=== PATIENT | male | born 2000 | race Caucasian/White ===

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

== ENCOUNTER 2019-02-01 02:03 | Inpatient (IN) | payer BC ==
[2019-02-01] MEDS ORDERED: Albuterol/Ipratropium 3.0-0.5 MG/3 ML Neb Soln NEB ONE ×2 (02:08→02:17)
--- NOTE | 2019-02-01 02:09 | EDM.PDOC ---
ED HPI GENERAL MEDICAL PROBLEM - General Stated Complaint: CHEST TIGHTNESS, SORE THROAT, FEELING OF COLDNESS Time Seen by Provider: 02/01/19 02:08 Source of Information: Reports: Patient - History of Present Illness INITIAL COMMENTS - FREE TEXT/NARRATIVE: HISTORY AND PHYSICAL: History of present illness: [Patient with asthma presents with shortness of breath chest pain, no current fever chills or sweats however does complain of sore throat no headache dizziness or palpitation no bowel or urine symptoms His mother is placed on an antibiotic that she had left over from [place] I believe it is ampicillin, is not moving much air initially requiring back-to- back DuoNeb's and Solu-Medrol listed improved symptomology however between the antibiotic at home and failing the albuterol HFA is essentially failed conservative management ] Review of systems: As per history of present illness and below otherwise all systems reviewed and negative. Past medical history: As per history of present illness and as reviewed below otherwise noncontributory. Surgical history: As per history of present illness and as reviewed below otherwise noncontributory. Social history: No reported history of drug or alcohol abuse. Family history: As per history of present illness and as reviewed below otherwise noncontributory. Physical exam: HEENT: Atraumatic, normocephalic, pupils reactive, negative for conjunctival pallor or scleral icterus, mucous membranes moist, throat clear, neck supple, nontender, trachea midline. Lungs: Clear to auscultation, breath sounds equal bilaterally, chest nontender. Heart: S1S2, regular, negative for clicks, rubs, or JVD. Abdomen: Soft, nondistended, nontender. Negative for masses or hepatosplenomegaly. Negative for costovertebral tenderness. Pelvis: Stable nontender. Genitourinary: Deferred. Rectal: Deferred. Extremities: Atraumatic, negative for cords or calf pain. Neurovascular unremarkable. Neuro: Awake, alert, oriented. Cranial nerves II through XII unremarkable. Cerebellum unremarkable. Motor and sensory unremarkable throughout. Exam nonfocal. Diagnostics: [BC CMP UA d-dimer blood cultures 2 CPK pending at time of dictation chest x-ray CTA chest ] Therapeutics: [ normal saline DuoNeb 2 Solu-Medrol Levaquin ] Impression: [ pneumonia Asthma ] Failed conservative management Definitive disposition and diagnosis as appropriate pending reevaluation and review of above. Upper Chest Pain Score (Numeric/FACES): 5 - Related Data Allergies Allergy/AdvReac Type Severity Reaction Status Date / Time No Known Allergies Allergy Verified 02/01/19 02:20 Home Meds: Home Meds Albuterol [Ventolin HFA] 2 puff INH Q4H PRN 02/01/19 [History] Past Medical History - Past Health History Medical/Surgical History: Denies Medical/Surgical History Gastrointestinal History: Reports: Other (See Below) (cholecystitis) Other Gastrointestinal History: fatty liver Endocrine/Metabolic History: Reports: Obesity/BMI 30+ - Past Surgical History Head Surgeries/Procedures: Reports: None Social & Family History - Family History Family Medical History: Unobtainable - Caffeine Use Caffeine Use: Reports: None ED ROS GENERAL - Review of Systems Review Of Systems: See Below ED EXAM, GENERAL - Physical Exam Exam: See Below Course - Vital Signs Last Recorded V/S: Last Vital Signs Temp 97.9 F 02/01/19 02:16 Pulse 109 H 02/01/19 05:07 Resp 22 H 02/01/19 04:35 BP 114/73 02/01/19 05:07 Pulse Ox 92 L 02/01/19 05:07 - Orders/Labs/Meds Orders: Active Orders 24 hr Category Date Time Status EKG 12 Lead [EKG Documentation Completion] [RC] STAT Care 02/01/19 02:18 Active RT Aerosol Therapy [RC] ASDIRECTED Care 02/01/19 02:08 Active RT Aerosol Therapy [RC] ASDIRECTED Care 02/01/19 02:17 Active CPK [CREATINE KINASE,CK] [CHEM] Stat Lab 02/01/19 05:32 Ordered CULTURE STREP A CONFIRMATION [RM] Stat Lab 02/01/19 02:18 Ordered STREP SCRN A RAPID W CULT CONF [RM] Stat Lab 02/01/19 02:18 Ordered Sodium Chloride 0.9% [Normal Saline] 1,000 ml Med 02/01/19 02:30 Active IV STAT Medication Orders Sodium Chloride (Normal Saline) 1,000 mls @ 125 mls/hr IV STAT [facility] Last Admin: 02/01/19 02:15 Dose: 125 mls/hr Labs: Laboratory Tests 02/01/19 02/01/19 02/01/19 Range/Units 02:15 02:38 02:45 WBC 9.39 (4.0-11.0) K/uL RBC 4.67 (4.50-5.90) M/uL Hgb 12.9 L (13.0-17.0) g/dL Hct 38.4 (38.0-50.0) % MCV 82.2 (80.0-98.0) fL MCH 27.6 (27.0-32.0) pg MCHC 33.6 (31.0-37.0) g/dL RDW Std Deviation 41.1 (28.0-62.0) fl RDW Coeff of Afsaneh 14 (11.0-15.0) % Plt Count 281 (150-400) K/uL MPV 9.60 (7.40-12.00) fL Neut % (Auto) 72.6 (48.0-80.0) % Lymph % (Auto) 18.4 (16.0-40.0) % [place] % (Auto) 8.4 (0.0-15.0) % Eos % (Auto) 0.4 (0.0-7.0) % Baso % (Auto) 0.2 (0.0-1.5) % Neut # (Auto) 6.8 H (1.4-5.7) K/uL Lymph # (Auto) 1.7 (0.6-2.4) K/uL [place] # (Auto) 0.8 (0.0-0.8) K/uL Eos # (Auto) 0.0 (0.0-0.7) K/uL Baso # (Auto) 0.0 (0.0-0.1) K/uL Nucleated RBC % 0.0 /100WBC Nucleated RBCs # 0 K/uL INR D-Dimer, Quantitative 2.35 H (0.0-0.50) mg/L FEU Sodium (136-148) mmol/L Potassium (3.5-5.1) mmol/L Chloride (98-107) mmol/L Carbon Dioxide (21.0-32.0) mmol/L BUN (7.0-18.0) mg/dL Creatinine (0.8-1.3) mg/dL Est Cr Clr Drug Dosing mL/min Estimated GFR (MDRD) ml/min Glucose (74-106) mg/dL Calcium (8.5-10.1) mg/dL Total Bilirubin (0.2-1.0) mg/dL AST (15-37) IU/L ALT (14-63) IU/L Alkaline Phosphatase (46-116) U/L Troponin I (0.000-0.056) ng/mL Total Protein (6.4-8.2) g/dL Albumin (3.4-5.0) g/dL Globulin (2.6-4.0) g/dL Albumin/Globulin Ratio (0.9-1.6) Urine Color YELLOW Urine Appearance SLT CLOUDY Urine pH 6.0 (5.0-8.0) Ur Specific [place] 1.020 (1.001-1.035) Urine Protein 30 H (NEGATIVE) mg/dL Urine Glucose (UA) NEGATIVE (NEGATIVE) mg/dL Urine Ketones NEGATIVE (NEGATIVE) mg/dL Urine Occult Blood MODERATE H (NEGATIVE) Urine Nitrite NEGATIVE (NEGATIVE) Urine Bilirubin NEGATIVE (NEGATIVE) Urine Urobilinogen 0.2 (<2.0) EU/dL Ur Leukocyte Esterase NEGATIVE (NEGATIVE) Urine RBC 0-2 (0-2/HPF) Urine WBC 0-2 (0-5/HPF) Ur Epithelial Cells RARE (NONE-FEW) Urine Bacteria RARE (NEGATIVE) 02/01/19 02/01/19 Range/Units 02:45 02:45 WBC (4.0-11.0) K/uL RBC (4.50-5.90) M/uL Hgb (13.0-17.0) g/dL Hct (38.0-50.0) % MCV (80.0-98.0) fL MCH (27.0-32.0) pg MCHC (31.0-37.0) g/dL RDW Std Deviation (28.0-62.0) fl RDW Coeff of Afsaneh (11.0-15.0) % Plt Count (150-400) K/uL MPV (7.40-12.00) fL Neut % (Auto) (48.0-80.0) % Lymph % (Auto) (16.0-40.0) % [place] % (Auto) (0.0-15.0) % Eos % (Auto) (0.0-7.0) % Baso % (Auto) (0.0-1.5) % Neut # (Auto) (1.4-5.7) K/uL Lymph # (Auto) (0.6-2.4) K/uL [place] # (Auto) (0.0-0.8) K/uL Eos # (Auto) (0.0-0.7) K/uL Baso # (Auto) (0.0-0.1) K/uL Nucleated RBC % /100WBC Nucleated RBCs # K/uL INR 0.96 D-Dimer, Quantitative (0.0-0.50) mg/L FEU Sodium 136 (136-148) mmol/L Potassium 3.6 (3.5-5.1) mmol/L Chloride 98 (98-107) mmol/L Carbon Dioxide 24.9 (21.0-32.0) mmol/L BUN 8 (7.0-18.0) mg/dL Creatinine 0.9 (0.8-1.3) mg/dL Est Cr Clr Drug Dosing 122.41 mL/min Estimated GFR (MDRD) > 60.0 ml/min Glucose 139 H (74-106) mg/dL Calcium 8.3 L (8.5-10.1) mg/dL Total Bilirubin 0.4 (0.2-1.0) mg/dL AST 54 H (15-37) IU/L ALT 75 H (14-63) IU/L Alkaline Phosphatase 63 (46-116) U/L Troponin I < 0.050 (0.000-0.056) ng/mL Total Protein 7.6 (6.4-8.2) g/dL Albumin 3.2 L (3.4-5.0) g/dL Globulin 4.4 H (2.6-4.0) g/dL Albumin/Globulin Ratio 0.7 L (0.9-1.6) Urine Color Urine Appearance Urine pH (5.0-8.0) Ur Specific [place] (1.001-1.035) Urine Protein (NEGATIVE) mg/dL Urine Glucose (UA) (NEGATIVE) mg/dL Urine Ketones (NEGATIVE) mg/dL Urine Occult Blood (NEGATIVE) Urine Nitrite (NEGATIVE) Urine Bilirubin (NEGATIVE) Urine Urobilinogen (<2.0) EU/dL Ur Leukocyte Esterase (NEGATIVE) Urine RBC (0-2/HPF) Urine WBC (0-5/HPF) Ur Epithelial Cells (NONE-FEW) Urine Bacteria (NEGATIVE) Meds: Medications Generic Name Dose Route Start Last Admin Trade Name Gabrielle PRN Reason Stop Dose Admin Sodium Chloride 1,000 mls @ 125 mls/hr 02/01/19 02:30 02/01/19 02:15 Normal Saline IV 125 mls/hr STAT [facility] Administration Discontinued Medications Generic Name Dose Route Start Last Admin Trade Name Gabrielle PRN Reason Stop Dose Admin Albuterol/Ipratropium 3 ml 02/01/19 02:08 02/01/19 02:28 Duoneb 3.0-0.5 Mg/3 Ml NEB 02/01/19 02:09 3 ml ONETIME ONE Administration Albuterol/Ipratropium 3 ml 02/01/19 02:17 02/01/19 03:36 Duoneb 3.0-0.5 Mg/3 Ml NEB 02/01/19 02:18 3 ml ONETIME ONE Administration Iopamidol 100 ml 02/01/19 04:16 02/01/19 04:17 Isovue Multipack-370 (76%) IVPUSH 02/01/19 04:17 100 ml ONETIME STA Administration Methylprednisolone Sodium Succinate 125 mg 02/01/19 02:17 02/01/19 02:28 Solu-Medrol IVPUSH 02/01/19 02:18 125 mg ONETIME ONE Administration Departure - Departure Time of Disposition: 05:44 Disposition: Refer to Observation Condition: Poor Clinical Impression: Pneumonia, Asthma - Discharge Information - My Orders Last 24 Hours: My Active Orders 02/01/19 02:08 RT Aerosol Therapy [RC] ASDIRECTED 02/01/19 02:17 RT Aerosol Therapy [RC] ASDIRECTED 02/01/19 02:18 EKG 12 Lead [EKG Documentation Completion] [RC] STAT CULTURE STREP A CONFIRMATION [RM] Stat STREP SCRN A RAPID W CULT CONF [RM] Stat 02/01/19 02:30 Sodium Chloride 0.9% [Normal Saline] 1,000 ml IV STAT 02/01/19 05:32 CPK [CREATINE KINASE,CK] [CHEM] Stat - Assessment/Plan Last 24 Hours: My Active Orders 02/01/19 02:08 RT Aerosol Therapy [RC] ASDIRECTED 02/01/19 02:17 RT Aerosol Therapy [RC] ASDIRECTED 02/01/19 02:18 EKG 12 Lead [EKG Documentation Completion] [RC] STAT CULTURE STREP A CONFIRMATION [] Stat STREP SCRN A RAPID W CULT CONF [] Stat 02/01/19 02:30 Sodium Chloride 0.9% [Normal Saline] 1,000 ml IV STAT 02/01/19 05:32 CPK [CREATINE KINASE,CK] [CHEM] Stat
[2019-02-01] MEDS: Sodium Chloride 0.9% 1,000 ML IV SCH ×3 (02:15→19:38)
[2019-02-01] MEDS ORDERED: methylPREDNISolone Sodium Succinate 125 MG/2 ML SDV IVPUSH ONE (02:17)
[2019-02-01 03:12] LABS: BLOOD UREA NITROGEN,BUN 8 mg/dL (7.0-18.0); CARBON DIOXIDE,CO2 24.9 mmol/L (21.0-32.0); CHLORIDE,CL 98 mmol/L (98-107); GLUCOSE RANDOM 139 mg/dL (74-106); POTASSIUM,K 3.6 mmol/L (3.5-5.1); SODIUM,NA 136 mmol/L (136-148)
--- NOTE | 2019-02-01 03:27 | CR ---
INDICATION: Pain and shortness of breath TECHNIQUE: Chest 1 view COMPARISON: None FINDINGS: Cardiovascular and mediastinum: Heart size and vasculature are normal in caliber and appearance. Lungs and pleural spaces: No pleural effusion or pneumothorax. Patchy bilateral airspace opacities, greater on the right. Bones and soft tissues: No significant findings. IMPRESSION: Patchy bilateral airspace opacities suggestive of pneumonia. Dictated by Judd Parrish MD @ Feb 01 2019 3:24AM Signed by Dr. Judd Parrish @ Feb 01 2019 3:24AM
[2019-02-01] MEDS ORDERED: Iopamidol 755 MG/ML 500 ML Multipack Bottle IVPUSH STA (04:16)
--- NOTE | 2019-02-01 05:25 | CT ---
INDICATION: Shortness of breath and elevated D-dimer. TECHNIQUE: CT chest PE was acquired with 80 cc Isovue 370 intravenous contrast. COMPARISON: None. FINDINGS: Heart and vasculature: Contrast opacification of the pulmonary arterial tree is adequate. No sign of pulmonary embolism. No pericardial effusion. Thoracic aorta normal in caliber. Lungs and pleural: No pleural effusion or pneumothorax. Centrilobular nodularity within both lungs with intervening dense areas of consolidation Lymph nodes/mediastinum: Subcentimeter prevascular lymph nodes with subcarinal lymph nodes measuring up to 16 millimeters in short axis. Right hilar lymph nodes measure up to 13 millimeters. Chest wall: No masses. Upper abdomen: Fatty infiltration of the liver. Status post cholecystectomy. Bones: Unremarkable for age. IMPRESSION: 1. No evidence of pulmonary embolus. 2. Bilateral areas of centrilobular nodularity in prominent consolidation. Appearance is suggestive of a multifocal bronchopneumonia. Differential diagnosis would include a pneumonitis. Please note that all CT scans at this facility use dose modulation, iterative reconstruction, and/or weight-based dosing when appropriate to reduce radiation dose to as low as reasonably achievable. Dictated by Judd Parrish MD @ Feb 01 2019 5:07AM Signed by Dr. Judd Parrish @ Feb 01 2019 5:24AM
[2019-02-01] MEDS ORDERED: Levofloxacin/Dextrose 5%-Water 750 MG in Premix Bag 1 BAG IV ONE (05:40)
--- NOTE | 2019-02-01 07:14 | PCM.HP.2 ---
H&P History of Present Illness - General Date of Service: 02/01/19 Admit Problem/Dx: Admission Diagnosis/Problem Admission Diagnosis/Problem Pneumonia, multilobular, community-acquired, hypoxia Source of Information: Patient, Family History Limitations: Reports: No Limitations - History of Present Illness Initial Comments - Free Text/Narative: The patient is a 18-year-old gentleman who presented to the emergency department this morning secondary to chest tightness, sore throat and feeling of coldness. Patient reports that he has not been feeling well for the past 3-4 days. He has had a cough that has been productive of sputum. The patient had been taking leftover ampicillin but this is not improved his symptoms. He does have a history of asthma and he has been having increasing wheezing and shortness of breath. The patient has said that he has had some fever and chills although he has not been able to measure his temperature. The patient has had no specific aggravating or relieving factors. The patient has been in his usual state of health at the present time. The patient was last admitted to hospitalization 2 years ago for cholecystitis. Onset of Symptoms: Reports: Gradual Duration of Symptoms: Reports: Day(s):, Getting Worse Location: Reports: Chest Quality: Reports: Ache, Stabbing Severity: Moderate Improves with: Reports: Rest Worsens with: Reports: Breathing Associated Symptoms: Reports: cough w sputum, Shortness of Breath Upper Chest Pain Score (Numeric/FACES): 5 - Related Data Allergies/Adverse Reactions: Allergies Allergy/AdvReac Type Severity Reaction Status Date / Time No Known Allergies Allergy Verified 02/01/19 08:59 Home Medications: Home Meds Albuterol [Ventolin HFA] 2 puff INH Q4H PRN 02/01/19 [History] Past Medical History - Past Health History Medical/Surgical History: Denies Medical/Surgical History HEENT History: Reports: Impaired Vision Other HEENT History: wears glasses Cardiovascular History: Reports: None Respiratory History: Reports: Asthma, Bronchitis, Recurrent Gastrointestinal History: Reports: Other (See Below) (cholecystitis) Other Gastrointestinal History: fatty liver Genitourinary History: Reports: None Musculoskeletal History: Reports: None Neurological History: Reports: None Psychiatric History: Reports: None Endocrine/Metabolic History: Reports: Obesity/BMI 30+ Hematologic History: Reports: None Immunologic History: Reports: None Oncologic (Cancer) History: Reports: None Dermatologic History: Reports: None - Infectious Disease History Infectious Disease History: Reports: None - Past Surgical History Head Surgeries/Procedures: Reports: None Social & Family History - Family History Family Medical History: Unobtainable - Tobacco Use Smoking Status *Q: Never Smoker Second Hand Smoke Exposure: No - Caffeine Use Caffeine Use: Reports: None - Alcohol Use Alcohol Use History: No - Recreational Drug Use Recreational Drug Use: No H&P Review of Systems - Review of Systems: Review Of Systems: See Below General: Reports: Fever, Chills, Weakness HEENT: Reports: No Symptoms Pulmonary: Reports: Shortness of Breath, Wheezing, Cough, Sputum Cardiovascular: Reports: Other (Chest tightness with asthma history) Gastrointestinal: Reports: No Symptoms Genitourinary: Reports: No Symptoms Musculoskeletal: Reports: No Symptoms Skin: Reports: No Symptoms Psychiatric: Reports: No Symptoms Neurological: Reports: No Symptoms Hematologic/Lymphatic: Reports: No Symptoms Immunologic: Reports: No Symptoms Exam - Exam Exam: See Below - Vital Signs Vital Signs: Last Vital Signs Temp 36.7 C 02/01/19 06:25 Pulse 95 02/01/19 06:25 Resp 20 02/01/19 06:25 BP 120/65 02/01/19 06:25 Pulse Ox 94 L 02/01/19 06:25 Weight: 133.81 kg - Exam Quality Assessment: No: Supplemental Oxygen General: Alert, Oriented, Cooperative HEENT: Conjunctiva Clear, EACs Clear, EOMI, Nares Patent, Pupils Equal, PERRLA. No: Mucosa Moist & [place] (Dry) Neck: Supple, Trachea Midline Lungs: Decreased Breath Sounds, Crackles, Wheezing Cardiovascular: Regular Rate, Regular Rhythm GI/Abdominal Exam: Normal Bowel Sounds, Soft, Non-Tender, No Distention. No: Guarding, Rigid, Rebound Back Exam: Normal Inspection, Full Range of Motion Extremities: Normal Inspection, Normal Range of Motion, No Pedal Edema Skin: Warm, Dry, Intact Neurological: Cranial Nerves Intact, Normal Gait Neuro Extensive - Mental Status: Alert, Oriented x3, Memory Intact Psychiatric: Alert, Normal Affect, Normal Mood - Patient Data Lab Results Last 24 hrs: Laboratory Results - last 24 hr 02/01/19 02/01/19 02/01/19 Range/Units 02:15 02:38 02:45 WBC 9.39 (4.0-11.0) K/uL RBC 4.67 (4.50-5.90) M/uL Hgb 12.9 L (13.0-17.0) g/dL Hct 38.4 (38.0-50.0) % MCV 82.2 (80.0-98.0) fL MCH 27.6 (27.0-32.0) pg MCHC 33.6 (31.0-37.0) g/dL RDW Std Deviation 41.1 (28.0-62.0) fl RDW Coeff of Afsaneh 14 (11.0-15.0) % Plt Count 281 (150-400) K/uL MPV 9.60 (7.40-12.00) fL Neut % (Auto) 72.6 (48.0-80.0) % Lymph % (Auto) 18.4 (16.0-40.0) % [place] % (Auto) 8.4 (0.0-15.0) % Eos % (Auto) 0.4 (0.0-7.0) % Baso % (Auto) 0.2 (0.0-1.5) % Neut # (Auto) 6.8 H (1.4-5.7) K/uL Lymph # (Auto) 1.7 (0.6-2.4) K/uL [place] # (Auto) 0.8 (0.0-0.8) K/uL Eos # (Auto) 0.0 (0.0-0.7) K/uL Baso # (Auto) 0.0 (0.0-0.1) K/uL Nucleated RBC % 0.0 /100WBC Nucleated RBCs # 0 K/uL INR D-Dimer, Quantitative 2.35 H (0.0-0.50) mg/L FEU Sodium (136-148) mmol/L Potassium (3.5-5.1) mmol/L Chloride (98-107) mmol/L Carbon Dioxide (21.0-32.0) mmol/L BUN (7.0-18.0) mg/dL Creatinine (0.8-1.3) mg/dL Est Cr Clr Drug Dosing mL/min Estimated GFR (MDRD) ml/min Glucose (74-106) mg/dL Calcium (8.5-10.1) mg/dL Total Bilirubin (0.2-1.0) mg/dL AST (15-37) IU/L ALT (14-63) IU/L Alkaline Phosphatase (46-116) U/L Creatine Kinase (26-308) U/L Troponin I (0.000-0.056) ng/mL Total Protein (6.4-8.2) g/dL Albumin (3.4-5.0) g/dL Globulin (2.6-4.0) g/dL Albumin/Globulin Ratio (0.9-1.6) Urine Color YELLOW Urine Appearance SLT CLOUDY Urine pH 6.0 (5.0-8.0) Ur Specific [place] 1.020 (1.001-1.035) Urine Protein 30 H (NEGATIVE) mg/dL Urine Glucose (UA) NEGATIVE (NEGATIVE) mg/dL Urine Ketones NEGATIVE (NEGATIVE) mg/dL Urine Occult Blood MODERATE H (NEGATIVE) Urine Nitrite NEGATIVE (NEGATIVE) Urine Bilirubin NEGATIVE (NEGATIVE) Urine Urobilinogen 0.2 (<2.0) EU/dL Ur Leukocyte Esterase NEGATIVE (NEGATIVE) Urine RBC 0-2 (0-2/HPF) Urine WBC 0-2 (0-5/HPF) Ur Epithelial Cells RARE (NONE-FEW) Urine Bacteria RARE (NEGATIVE) 02/01/19 02/01/19 02/01/19 Range/Units 02:45 02:45 02:45 WBC (4.0-11.0) K/uL RBC (4.50-5.90) M/uL Hgb (13.0-17.0) g/dL Hct (38.0-50.0) % MCV (80.0-98.0) fL MCH (27.0-32.0) pg MCHC (31.0-37.0) g/dL RDW Std Deviation (28.0-62.0) fl RDW Coeff of Afsaneh (11.0-15.0) % Plt Count (150-400) K/uL MPV (7.40-12.00) fL Neut % (Auto) (48.0-80.0) % Lymph % (Auto) (16.0-40.0) % [place] % (Auto) (0.0-15.0) % Eos % (Auto) (0.0-7.0) % Baso % (Auto) (0.0-1.5) % Neut # (Auto) (1.4-5.7) K/uL Lymph # (Auto) (0.6-2.4) K/uL [place] # (Auto) (0.0-0.8) K/uL Eos # (Auto) (0.0-0.7) K/uL Baso # (Auto) (0.0-0.1) K/uL Nucleated RBC % /100WBC Nucleated RBCs # K/uL INR 0.96 D-Dimer, Quantitative (0.0-0.50) mg/L FEU Sodium 136 (136-148) mmol/L Potassium 3.6 (3.5-5.1) mmol/L Chloride 98 (98-107) mmol/L Carbon Dioxide 24.9 (21.0-32.0) mmol/L BUN 8 (7.0-18.0) mg/dL Creatinine 0.9 (0.8-1.3) mg/dL Est Cr Clr Drug Dosing 122.41 mL/min Estimated GFR (MDRD) > 60.0 ml/min Glucose 139 H (74-106) mg/dL Calcium 8.3 L (8.5-10.1) mg/dL Total Bilirubin 0.4 (0.2-1.0) mg/dL AST 54 H (15-37) IU/L ALT 75 H (14-63) IU/L Alkaline Phosphatase 63 (46-116) U/L Creatine Kinase 236 (26-308) U/L Troponin I < 0.050 (0.000-0.056) ng/mL Total Protein 7.6 (6.4-8.2) g/dL Albumin 3.2 L (3.4-5.0) g/dL Globulin 4.4 H (2.6-4.0) g/dL Albumin/Globulin Ratio 0.7 L (0.9-1.6) Urine Color Urine Appearance Urine pH (5.0-8.0) Ur Specific [place] (1.001-1.035) Urine Protein (NEGATIVE) mg/dL Urine Glucose (UA) (NEGATIVE) mg/dL Urine Ketones (NEGATIVE) mg/dL Urine Occult Blood (NEGATIVE) Urine Nitrite (NEGATIVE) Urine Bilirubin (NEGATIVE) Urine Urobilinogen (<2.0) EU/dL Ur Leukocyte Esterase (NEGATIVE) Urine RBC (0-2/HPF) Urine WBC (0-5/HPF) Ur Epithelial Cells (NONE-FEW) Urine Bacteria (NEGATIVE) Result Diagrams: 02/01/19 02:15 02/01/19 02:45 Greg Results Last 24 hrs: Microbiology 02/01/19 02:18 Group A Streptococcus Rapid Screen - Final Throat NEGATIVE STREP A SCREEN REFERENCE RANGE: NEGATIVE - Problem List (1) Pneumonia SNOMED Code(s): 058037992 ICD Code: J18.9 - PNEUMONIA, UNSPECIFIED ORGANISM Status: Acute Priority : High Current Visit: Yes Problem Details: Multilobular, community-acquired Qualifiers: Pneumonia type: due to unspecified organism Laterality: bilateral Lung location: unspecified part of lung Qualified Code(s): J18.9 - Pneumonia, unspecified organism (2) Leukocytosis SNOMED Code(s): 358200556, 363119380 ICD Code: D72.829 - ELEVATED WHITE BLOOD CELL COUNT, UNSPECIFIED Status: Acute Priority: High Current Visit: Yes Qualifiers: Leukocytosis type: bandemia Qualified Code(s): D72.825 - Bandemia (3) Obesity, Class III, BMI 40-49.9 (morbid obesity) SNOMED Code(s): 802972484, 344025595, 75455060816196 ICD Code: E66.01 - MORBID (SEVERE) OBESITY DUE TO EXCESS CALORIES Status: Chronic Priority: Medium Current Visit: Yes (4) Asthma SNOMED Code(s): 788197602 ICD Code: J45.909 - UNSPECIFIED ASTHMA, UNCOMPLICATED Status: Chronic Priority: High Current Visit: Yes Qualifiers: Asthma severity: mild Asthma persistence: intermittent Asthma complication type: uncomplicated Qualified Code(s): J45.20 - Mild intermittent asthma, uncomplicated Problem List Initiated/Reviewed/Updated: Yes Orders Last 24hrs: Active Orders 24 hr Category Date Time Status Admission Status [Patient Status] [ADT] Stat ADT 02/01/19 05:44 Active EKG 12 Lead [EKG Documentation Completion] [RC] STAT Care 02/01/19 02:18 Active RT Aerosol Therapy [RC] ASDIRECTED Care 02/01/19 02:08 Active RT Aerosol Therapy [RC] ASDIRECTED Care 02/01/19 02:17 Active CULTURE BLOOD [BC] Stat Lab 02/01/19 06:05 Received CULTURE BLOOD [] Stat Lab 02/01/19 06:16 Received CULTURE STREP A CONFIRMATION [] Stat Lab 02/01/19 02:18 Ordered STREP SCRN A RAPID W CULT CONF [] Stat Lab 02/01/19 02:18 Ordered Sodium Chloride 0.9% [Normal Saline] 1,000 ml Med 02/01/19 02:30 Active IV STAT Blood Culture x2 Reflex Set [OM.PC] Stat Oth 02/01/19 05:39 Ordered Medication Orders Sodium Chloride (Normal Saline) 1,000 mls @ 125 mls/hr IV STAT SAMARA Last Admin: 02/01/19 02:15 Dose: 125 mls/hr Assessment/Plan Comment:: The patient is a 18-year-old gentleman who has a respiratory history of asthma and has been admitted secondary to multilobular pneumonia. I specifically asked the patient if he had been using electronic cigarettes and he has denied this. The patient will be admitted for now to observation and placed the patient on Levaquin 500 mg IV daily. I've also ordered respiratory therapy with rica nebs to help with his wheezing. The patient will also be kept on regular diet as tolerated. I've also ordered for the patient to have DVT prophylaxis with the use of 40 mg subcutaneous Lovenox daily. Repeat laboratory studies have been ordered. He's been encouraged to ambulate. The patient was also noted to have an elevation and a d-dimer and a CT scan excluded pulmonary emboli. The patient will also be kept on IV normal saline at 125 milliliters per hour. I do not believe at this time that the patient meets the criteria for sepsis as his lactate is been normal. The patient should be appropriate for discharge in 1-2 days. - Mortality Measure Prognosis:: Good
[2019-02-01] MEDS ORDERED: Docusate Sodium 100 MG Cap PO PRN (07:27)
[2019-02-01] MEDS ORDERED: Acetaminophen 325 MG Tab PO PRN (07:27)
[2019-02-01] MEDS ORDERED: Ondansetron 4 MG Tab.DIS PO PRN (07:27)
[2019-02-01] MEDS ORDERED: oxyCODONE 5 MG Tab PO PRN (07:27)
[2019-02-01] MEDS: Enoxaparin 40 MG/0.4 ML Syringe SUBCUT SCH (08:49)
[2019-02-01] MEDS ORDERED: Levofloxacin/Dextrose 5%-Water 500 MG in Premix Bag 1 BAG IV SCH (10:00)
[2019-02-01] MEDS: Albuterol/Ipratropium 3.0-0.5 MG/3 ML Neb Soln NEB PRN (19:28)
[2019-02-02] MEDS: Albuterol/Ipratropium 3.0-0.5 MG/3 ML Neb Soln NEB PRN ×3 (01:57→19:30)
[2019-02-02] MEDS: Sodium Chloride 0.9% 1,000 ML IV SCH (03:07)
[2019-02-02 06:46] LABS: BLOOD UREA NITROGEN,BUN 10 mg/dL (7.0-18.0); CARBON DIOXIDE,CO2 24.7 mmol/L (21.0-32.0); CHLORIDE,CL 106 mmol/L (98-107); GLUCOSE RANDOM 145 mg/dL (74-106); POTASSIUM,K 3.9 mmol/L (3.5-5.1); SODIUM,NA 141 mmol/L (136-148)
--- NOTE | 2019-02-02 06:58 | CR ---
INDICATION: Pneumonia. COMPARISON: 02/01/2019. TECHNIQUE: Single view of the chest. FINDINGS: Patchy bilateral lung opacities most pronounced in the right lung base are more pronounced/dense compared to prior chest x-ray. No pleural effusion or pneumothorax. Cardiomediastinal silhouette is normal. IMPRESSION: Redemonstration of bilateral lung opacities most pronounced in the right lower lung, more pronounced/dense compared to prior chest x-ray. Dictated by Shiv Adame MD @ Feb 02 2019 6:54AM Signed by Dr. Shiv Adame @ Feb 02 2019 6:56AM
[2019-02-02] MEDS: Enoxaparin 40 MG/0.4 ML Syringe SUBCUT SCH (08:23)
[2019-02-02] MEDS: Levofloxacin/Dextrose 5%-Water 750 MG in Premix Bag 1 BAG IV SCH (08:23)
--- NOTE | 2019-02-02 08:48 | PCM.PN ---
- General Info Date of Service: 02/02/19 Admission Dx/Problem (Free Text): Admission Diagnosis/Problem Admission Diagnosis/Problem Pneumonia, multilobular, community-acquired, hypoxia Subjective Update: patient seen and examined at bedside. No acute distress, denied sob, palpitations. Breathing has improved, c/o mild abdominal discomfort Functional Status: Reports: Pain Controlled, Tolerating Diet, Urinating, Incentive Spirometry - Review of Systems General: Reports: Fatigue, Malaise HEENT: Reports: No Symptoms Pulmonary: Reports: Shortness of Breath, Cough, Sputum Cardiovascular: Reports: Dyspnea on Exertion Gastrointestinal: Reports: No Symptoms Genitourinary: Reports: No Symptoms Neurological: Reports: No Symptoms Psychiatric: Reports: No Symptoms - Patient Data Vitals - Most Recent: Last Vital Signs Temp 36.8 C 02/02/19 07:40 Pulse 89 02/02/19 07:40 Resp 18 02/02/19 07:40 BP 125/64 02/02/19 07:40 Pulse Ox 94 L 02/02/19 07:40 Weight - Most Recent: 295 lb I&O - Last 24 Hours: Intake & Output 02/01/19 02/02/19 02/02/19 22:59 06:59 14:59 Intake Total 2202 2915 240 Output Total 950 Balance 1252 2915 240 Lab Results Last 24 Hours: Laboratory Results - last 24 hr 02/02/19 02/02/19 Range/Units 06:10 06:10 WBC 12.69 H (4.0-11.0) K/uL RBC 4.17 L (4.50-5.90) M/uL Hgb 11.4 L (13.0-17.0) g/dL Hct 34.5 L (38.0-50.0) % MCV 82.7 (80.0-98.0) fL MCH 27.3 (27.0-32.0) pg MCHC 33.0 (31.0-37.0) g/dL RDW Std Deviation 42.1 (28.0-62.0) fl RDW Coeff of Afsaneh 14 (11.0-15.0) % Plt Count 316 (150-400) K/uL MPV 9.20 (7.40-12.00) fL Add Manual Diff YES Neutrophils % (Manual) 74 (48.0-80.0) % Band Neutrophils % 2 % Lymphocytes % (Manual) 16 (16.0-40.0) % Monocytes % (Manual) 6 (0.0-15.0) % Metamyelocytes % 2 % Nucleated RBC % 0.0 /100WBC Absolute Seg Neuts 9.4 H (1.4-5.7) Band Neutrophils # 0.3 Lymphocytes # (Manual) 2.0 (0.6-2.4) Monocytes # (Manual) 0.8 (0.0-0.8) Absolute Metamyelocyte 0.3 Nucleated RBCs # 0 K/uL Sodium 141 (136-148) mmol/L Potassium 3.9 (3.5-5.1) mmol/L Chloride 106 (98-107) mmol/L Carbon Dioxide 24.7 (21.0-32.0) mmol/L BUN 10 (7.0-18.0) mg/dL Creatinine 0.7 L (0.8-1.3) mg/dL Est Cr Clr Drug Dosing 173.81 mL/min Estimated GFR (MDRD) > 60.0 ml/min Glucose 145 H (74-106) mg/dL Calcium 8.5 (8.5-10.1) mg/dL Total Bilirubin 0.2 (0.2-1.0) mg/dL AST 43 H (15-37) IU/L ALT 75 H (14-63) IU/L Alkaline Phosphatase 50 (46-116) U/L Total Protein 6.9 (6.4-8.2) g/dL Albumin 2.6 L (3.4-5.0) g/dL Globulin 4.3 H (2.6-4.0) g/dL Albumin/Globulin Ratio 0.6 L (0.9-1.6) Greg Results Last 24 Hours: Microbiology 02/01/19 06:16 Aerobic Blood Culture - Preliminary Blood - Venous - Lab Draw NO GROWTH AFTER 1 DAY Anaerobic Blood Culture - Preliminary NO GROWTH AFTER 1 DAY 02/01/19 06:05 Aerobic Blood Culture - Preliminary Blood - Venous NO GROWTH AFTER 1 DAY Anaerobic Blood Culture - Preliminary NO GROWTH AFTER 1 DAY 02/01/19 08:53 Influenza Type A Antigen Screen - Final Nasopharyngeal Swab NEGATIVE INFLUENZA A VIRUS AG REFERENCE RANGE: NEGATIVE Influenza Type B Antigen Screen - Final NEGATIVE INFLUENZA B VIRUS AG REFERENCE RANGE: NEGATIVE Med Orders - Current: Current Medications Acetaminophen (Tylenol) 650 mg PO Q4H PRN PRN Reason: Pain (Mild 1-3)/fever Albuterol/Ipratropium (Duoneb 3.0-0.5 Mg/3 Ml) 3 ml NEB Q4HRRT PRN PRN Reason: Shortness Of Breath/wheezing Last Admin: 02/02/19 01:57 Dose: 3 ml Docusate Sodium (Colace) 100 mg PO BID PRN PRN Reason: Constipation Enoxaparin Sodium (Lovenox) 40 mg SUBCUT Q24H SAMARA Last Admin: 02/02/19 08:23 Dose: 40 mg Sodium Chloride (Normal Saline) 1,000 mls @ 125 mls/hr IV STAT SAMARA Last Admin: 02/02/19 03:07 Dose: 125 mls/hr Levofloxacin/Dextrose 750 mg/ (Premix) 150 mls @ 100 mls/hr IV Q24H [facility] Last Admin: 02/02/19 08:23 Dose: 100 mls/hr Ondansetron HCl (Zofran Odt) 4 mg PO Q4H PRN PRN Reason: nausea, able to take PO Oxycodone HCl (Oxycodone) 5 mg PO Q4H PRN PRN Reason: Pain (moderate 4-6) Discontinued Medications Albuterol/Ipratropium (Duoneb 3.0-0.5 Mg/3 Ml) 3 ml NEB ONETIME ONE Stop: 02/01/19 02:09 Last Admin: 02/01/19 02:28 Dose: 3 ml Albuterol/Ipratropium (Duoneb 3.0-0.5 Mg/3 Ml) 3 ml NEB ONETIME ONE Stop: 02/01/19 02:18 Last Admin: 02/01/19 03:36 Dose: 3 ml Levofloxacin/Dextrose 750 mg/ (Premix) 150 mls @ 100 mls/hr IV ONETIME ONE Stop: 02/01/19 07:09 Last Admin: 02/01/19 05:56 Dose: 100 mls/hr Levofloxacin/Dextrose 500 mg/ (Premix) 100 mls @ 100 mls/hr IV Q24H [facility] Last Admin: 02/01/19 11:00 Dose: 100 mls/hr Iopamidol (Isovue Multipack-370 (76%)) 100 ml IVPUSH ONETIME STA Stop: 02/01/19 04:17 Last Admin: 02/01/19 04:17 Dose: 100 ml Methylprednisolone Sodium Succinate (Solu-Medrol) 125 mg IVPUSH ONETIME ONE Stop: 02/01/19 02:18 Last Admin: 02/01/19 02:28 Dose: 125 mg - Exam Quality Assessment: Supplemental Oxygen General: Alert, Oriented, Cooperative Neck: Supple, Trachea Midline Lungs: Normal Respiratory Effort, Decreased Breath Sounds Cardiovascular: Regular Rate, Regular Rhythm GI/Abdominal Exam: Normal Bowel Sounds Extremities: Normal Inspection, Normal Range of Motion Peripheral Pulses: 3+: Dorsalis Pedis (L), Dorsalis Pedis (R) - Problem List & Annotations (1) Pneumonia SNOMED Code(s): 365730595 Code(s): J18.9 - PNEUMONIA, UNSPECIFIED ORGANISM Status: Acute Priority: High Current Visit: Yes Qualifiers: Pneumonia type: due to unspecified organism Laterality: bilateral Lung location: unspecified part of lung Qualified Code(s): J18.9 - Pneumonia, unspecified organism Annotation/Comment:: Multilobular, community-acquired (2) Asthma SNOMED Code(s): 393607322 Code(s): J45.909 - UNSPECIFIED ASTHMA, UNCOMPLICATED Status: Chronic Priority: High Current Visit: Yes Qualifiers: Asthma severity: mild Asthma persistence: intermittent Asthma complication type: uncomplicated Qualified Code(s): J45.20 - Mild intermittent asthma, uncomplicated (3) Obesity, Class III, BMI 40-49.9 (morbid obesity) SNOMED Code(s): 702688027, 659856355, 39278379328019 Code(s): E66.01 - MORBID (SEVERE) OBESITY DUE TO EXCESS CALORIES Status: Chronic Priority: Medium Current Visit: Yes - Problem List Review Problem List Initiated/Reviewed/Updated: Yes - Plan Plan:: 1) Community acquired PNA: patient came in with cough, sob, chest tightness ACS was ruled out at admission patient was also noted to have an elevated d-dimer and a CT scan excluded pulmonary emboli and showed multifocal PNA Patient improving clinically, cont IV antibiotic f/u on sputum culture, prelim result noted Deescalate based on sensitivities cont DuoNebs as needed Start cough suppressant cont incentive spirometry cont to monitor vitals Will change to inpatient status as patient will not be discharged today as he still needs IV antibiotics and cultures are pending. cont DVT ppx Ambulate as tolerated 2) Asthma: childhood h/o asthma not in acute exacerbation, 3) Obesity: counseled about healthy life style and weight gain
[2019-02-02] MEDS ORDERED: Ibuprofen 400 MG Tab PO PRN (11:12)
[2019-02-02 11:53] LABS: HEMOGLOBIN A1C 6.1 % (4.5-6.2)
[2019-02-02] MEDS ORDERED: Simethicone 80 MG Tab.Chew PO ONE (16:57)
[2019-02-02] MEDS ORDERED: Sodium Chloride 0.9% 1,000 ML IV SCH (17:15)
[2019-02-03 06:24] LABS: BLOOD UREA NITROGEN,BUN 10 mg/dL (7.0-18.0); CARBON DIOXIDE,CO2 24.9 mmol/L (21.0-32.0); CHLORIDE,CL 105 mmol/L (98-107); GLUCOSE RANDOM 101 mg/dL (74-106); POTASSIUM,K 3.9 mmol/L (3.5-5.1); SODIUM,NA 140 mmol/L (136-148)
[2019-02-03] MEDS: Albuterol/Ipratropium 3.0-0.5 MG/3 ML Neb Soln NEB PRN (07:21)
[2019-02-03] MEDS: Levofloxacin/Dextrose 5%-Water 750 MG in Premix Bag 1 BAG IV SCH (08:17)
[2019-02-03] MEDS: Enoxaparin 40 MG/0.4 ML Syringe SUBCUT SCH (08:17)
[2019-02-04 06:37] LABS: BLOOD UREA NITROGEN,BUN 10 mg/dL (7.0-18.0); CARBON DIOXIDE,CO2 25.9 mmol/L (21.0-32.0); CHLORIDE,CL 104 mmol/L (98-107); GLUCOSE RANDOM 101 mg/dL (74-106); POTASSIUM,K 4.4 mmol/L (3.5-5.1); SODIUM,NA 140 mmol/L (136-148)
[2019-02-04 07:41] VITALS: BP 112/58; PULSE 100
--- NOTE | 2019-02-04 08:07 | PCM.PN ---
- General Info Date of Service: 02/04/19 Admission Dx/Problem (Free Text): Admission Diagnosis/Problem Admission Diagnosis/Problem Pneumonia, multilobular, community-acquired, hypoxia - Patient Data Vitals - Most Recent: Last Vital Signs Temp 97.5 F 02/04/19 07:41 Pulse 100 02/04/19 07:41 Resp 18 02/04/19 07:41 BP 112/58 L 02/04/19 07:41 Pulse Ox 93 L 02/04/19 07:41 Weight - Most Recent: 133.81 kg I&O - Last 24 Hours: Intake & Output 02/03/19 02/04/19 02/04/19 22:59 06:59 14:59 Intake Total 2009 1500 Output Total 150 600 Balance 1860 900 Lab Results Last 24 Hours: Laboratory Results - last 24 hr 02/04/19 02/04/19 Range/Units 06:03 06:03 WBC 15.05 H (4.0-11.0) K/uL RBC 4.70 (4.50-5.90) M/uL Hgb 12.8 L (13.0-17.0) g/dL Hct 38.8 (38.0-50.0) % MCV 82.6 (80.0-98.0) fL MCH 27.2 (27.0-32.0) pg MCHC 33.0 (31.0-37.0) g/dL RDW Std Deviation 42.0 (28.0-62.0) fl RDW Coeff of Afsaneh 14 (11.0-15.0) % Plt Count 454 H (150-400) K/uL MPV 8.80 (7.40-12.00) fL Add Manual Diff YES Neutrophils % (Manual) 59 (48.0-80.0) % Lymphocytes % (Manual) 30 (16.0-40.0) % Monocytes % (Manual) 9 (0.0-15.0) % Eosinophils % (Manual) 2 (0.0-7.0) % Nucleated RBC % 0.0 /100WBC Absolute Seg Neuts 8.9 H (1.4-5.7) Lymphocytes # (Manual) 4.5 H (0.6-2.4) Monocytes # (Manual) 1.4 H (0.0-0.8) Eosinophils # (Manual) 0.3 (0.0-0.7) Nucleated RBCs # 0 K/uL Sodium 140 (136-148) mmol/L Potassium 4.4 (3.5-5.1) mmol/L Chloride 104 (98-107) mmol/L Carbon Dioxide 25.9 (21.0-32.0) mmol/L BUN 10 (7.0-18.0) mg/dL Creatinine 0.9 (0.8-1.3) mg/dL Est Cr Clr Drug Dosing 135.19 mL/min Estimated GFR (MDRD) > 60.0 ml/min Glucose 101 (74-106) mg/dL Calcium 8.8 (8.5-10.1) mg/dL Phosphorus 4.6 (2.6-4.7) mg/dL Magnesium 2.3 (1.8-2.4) mg/dL Greg Results Last 24 Hours: Microbiology 02/01/19 06:16 Aerobic Blood Culture - Preliminary Blood - Venous - Lab Draw NO GROWTH AFTER 3 DAYS Anaerobic Blood Culture - Preliminary NO GROWTH AFTER 3 DAYS 02/01/19 06:05 Aerobic Blood Culture - Preliminary Blood - Venous NO GROWTH AFTER 3 DAYS Anaerobic Blood Culture - Preliminary NO GROWTH AFTER 3 DAYS 02/02/19 10:15 Streptococcus pneumoniae Antigen (M - Final Urine Med Orders - Current: Current Medications Albuterol/Ipratropium (Duoneb 3.0-0.5 Mg/3 Ml) 3 ml NEB Q4HRRT PRN PRN Reason: Shortness Of Breath/wheezing Last Admin: 02/03/19 07:21 Dose: 3 ml Docusate Sodium (Colace) 100 mg PO BID PRN PRN Reason: Constipation Enoxaparin Sodium (Lovenox) 40 mg SUBCUT Q24H [facility] Last Admin: 02/03/19 08:17 Dose: 40 mg Levofloxacin/Dextrose 750 mg/ (Premix) 150 mls @ 100 mls/hr IV Q24H [facility] Last Admin: 02/03/19 08:17 Dose: 100 mls/hr Ibuprofen (Motrin) 400 mg PO Q6H PRN PRN Reason: Pain Ondansetron HCl (Zofran Odt) 4 mg PO Q4H PRN PRN Reason: nausea, able to take PO Discontinued Medications Acetaminophen (Tylenol) 650 mg PO Q4H PRN PRN Reason: Pain (Mild 1-3)/fever Albuterol/Ipratropium (Duoneb 3.0-0.5 Mg/3 Ml) 3 ml NEB ONETIME ONE Stop: 02/01/19 02:09 Last Admin: 02/01/19 02:28 Dose: 3 ml Albuterol/Ipratropium (Duoneb 3.0-0.5 Mg/3 Ml) 3 ml NEB ONETIME ONE Stop: 02/01/19 02:18 Last Admin: 02/01/19 03:36 Dose: 3 ml Sodium Chloride (Normal Saline) 1,000 mls @ 125 mls/hr IV STAT [facility] Last Admin: 02/02/19 03:07 Dose: 125 mls/hr Levofloxacin/Dextrose 750 mg/ (Premix) 150 mls @ 100 mls/hr IV ONETIME ONE Stop: 02/01/19 07:09 Last Admin: 02/01/19 05:56 Dose: 100 mls/hr Levofloxacin/Dextrose 500 mg/ (Premix) 100 mls @ 100 mls/hr IV Q24H [facility] Last Admin: 02/01/19 11:00 Dose: 100 mls/hr Sodium Chloride (Normal Saline) 1,000 mls @ 125 mls/hr IV ASDIRECTED [facility] Stop: 02/03/19 02:00 Last Admin: 02/02/19 18:11 Dose: 125 mls/hr Iopamidol (Isovue Multipack-370 (76%)) 100 ml IVPUSH ONETIME STA Stop: 02/01/19 04:17 Last Admin: 02/01/19 04:17 Dose: 100 ml Methylprednisolone Sodium Succinate (Solu-Medrol) 125 mg IVPUSH ONETIME ONE Stop: 02/01/19 02:18 Last Admin: 02/01/19 02:28 Dose: 125 mg Oxycodone HCl (Oxycodone) 5 mg PO Q4H PRN PRN Reason: Pain (moderate 4-6) Simethicone (Simethicone) 80 mg PO ONETIME ONE Stop: 02/02/19 16:58 Last Admin: 02/02/19 17:13 Dose: 80 mg - Assessment Assessment:: 1) Community acquired PNA: patient came in with cough, sob, chest tightness ACS ruled out patient was also noted to have an elevated d-dimer and a CT scan excluded pulmonary emboli and showed multifocal PNA Patient improving, cont IV antibiotic cont DuoNebs cont incentive spirometry cont to monitor vitals WBC noted, due ongoing infection and IV steroid administration, no sepsis currently f/u on sputum culture f/u on urine strep antigen cont DVT ppx AMbulate as tolerated 2) Asthma: childhood h/o asthma not in acute exacerbation, cont breathing treatments with DuoNebs 3) Obesity: counseled about healthy life style and weight gain - Plan Plan:: 1) Community acquired PNA: patient came in with cough, sob, chest tightness ACS was ruled out at admission patient was also noted to have an elevated d-dimer and a CT scan excluded pulmonary emboli and showed multifocal PNA Patient improving clinically, cont IV antibiotic f/u on sputum culture, prelim result noted Deescalate based on sensitivities cont DuoNebs as needed Start cough suppressant cont incentive spirometry cont to monitor vitals Will change to inpatient status as patient will not be discharged today as he still needs IV antibiotics and cultures are pending. cont DVT ppx Ambulate as tolerated 2) Asthma: childhood h/o asthma not in acute exacerbation, 3) Obesity: counseled about healthy life style and weight gain
[2019-02-04] MEDS: Enoxaparin 40 MG/0.4 ML Syringe SUBCUT SCH (08:15)
[2019-02-04] MEDS: Levofloxacin/Dextrose 5%-Water 750 MG in Premix Bag 1 BAG IV SCH (08:15)
--- NOTE | 2019-02-04 09:59 | PCM.DCSUM1 ---
Discharge Summary - Hospital Course Brief History: The patient is a 18-year-old gentleman who presented to the emergency department this morning secondary to chest tightness, sore throat and feeling of coldness. Patient reports that he has not been feeling well for the past 3-4 days. He has had a cough that has been productive of sputum. The patient had been taking leftover ampicillin but this is not improved his symptoms. He does have a history of asthma and he has been having increasing wheezing and shortness of breath. The patient has said that he has had some fever and chills although he has not been able to measure his temperature. The patient has had no specific aggravating or relieving factors. The patient has been in his usual state of health at the present time. The patient was last admitted to hospitalization 2 years ago for cholecystitis. - Discharge Data Discharge Date: 02/04/19 Discharge Disposition: Home, Self-Care 01 Condition: Stable - Referral to Home Health Primary Care Physician: Angella Newell DO - Patient Summary/Data Consults: Consultations 02/02/19 09:19 Respiratory Care Assess and Treatment [CONS] Routine - Discharge Plan Prescriptions/Med Rec: Albuterol [Ventolin HFA] 2 puff INH Q4H PRN #1 inhaler PRN Reason: Shortness Of Breath levoFLOXacin [Levaquin] 750 mg PO DAILY #3 tab Home Medications: Home Meds Albuterol [Ventolin HFA] 2 puff INH Q4H PRN #1 inhaler 02/04/19 [Rx] levoFLOXacin [Levaquin] 750 mg PO DAILY #3 tab 02/04/19 [Rx] Patient Handouts: Albuterol inhalation aerosol, Levofloxacin tablets, Community -Acquired Pneumonia, Adult, [id number] Referrals: [facility] [Outside] Angella Newell DO [Primary Care Provider] - 02/16/19 9:45 am (Bring a photo ID and insurance card. Arrive 15 minutes early. If you are not early they will not see you.) - Discharge Summary/Plan Comment DC Time >30 min.: No Discharge Summary/Plan Comment: Admitting Diagnoses: CAP Discharge Diagnoses: CAP Other PMH: Salina Raymundo was admitted for CAP, noted to have leukocytosis and dyspnea. He was treated with Levaquin 750 mg IV daily along with supportive measures with IC, flutter valve and duonebs. Leukocytosis improved, slight elevation today, but did receive steroids on admission. He clinically is improved and is feeling much better today, eager for discharge home. No further cough and no shortness of breath. He will be continued on 4 more days of Levaquin. I also refilled his inhaler as well. He is to see PCP in 1 week. Return to ED or clinic if concern should arise. - General Info Date of Service: 02/04/19 - Review of Systems General: Reports: No Symptoms. Denies: Fever, Weakness, Fatigue Pulmonary: Reports: No Symptoms. Denies: Shortness of Breath Cardiovascular: Reports: No Symptoms. Denies: Chest Pain Gastrointestinal: Reports: No Symptoms. Denies: Abdominal Pain, Nausea, Vomiting Genitourinary: Reports: No Symptoms Musculoskeletal: Reports: No Symptoms Skin: Reports: No Symptoms Neurological: Reports: No Symptoms Psychiatric: Reports: No Symptoms - Patient Data Vitals - Most Recent: Last Vital Signs Temp 97.5 F 02/04/19 07:41 Pulse 100 02/04/19 07:41 Resp 18 02/04/19 07:41 BP 112/58 L 02/04/19 07:41 Pulse Ox 93 L 02/04/19 07:41 Weight - Most Recent: 133.81 kg I&O - Last 24 hours: Intake & Output 02/03/19 02/04/19 02/04/19 22:59 06:59 14:59 Intake Total 2009 1500 150 Output Total 150 600 Balance 1860 900 150 Lab Results - Last 24 hrs: Laboratory Results - last 24 hr 02/04/19 02/04/19 Range/Units 06:03 06:03 WBC 15.05 H (4.0-11.0) K/uL RBC 4.70 (4.50-5.90) M/uL Hgb 12.8 L (13.0-17.0) g/dL Hct 38.8 (38.0-50.0) % MCV 82.6 (80.0-98.0) fL MCH 27.2 (27.0-32.0) pg MCHC 33.0 (31.0-37.0) g/dL RDW Std Deviation 42.0 (28.0-62.0) fl RDW Coeff of Afsaneh 14 (11.0-15.0) % Plt Count 454 H (150-400) K/uL MPV 8.80 (7.40-12.00) fL Add Manual Diff YES Neutrophils % (Manual) 59 (48.0-80.0) % Lymphocytes % (Manual) 30 (16.0-40.0) % Monocytes % (Manual) 9 (0.0-15.0) % Eosinophils % (Manual) 2 (0.0-7.0) % Nucleated RBC % 0.0 /100WBC Absolute Seg Neuts 8.9 H (1.4-5.7) Lymphocytes # (Manual) 4.5 H (0.6-2.4) Monocytes # (Manual) 1.4 H (0.0-0.8) Eosinophils # (Manual) 0.3 (0.0-0.7) Nucleated RBCs # 0 K/uL Sodium 140 (136-148) mmol/L Potassium 4.4 (3.5-5.1) mmol/L Chloride 104 (98-107) mmol/L Carbon Dioxide 25.9 (21.0-32.0) mmol/L BUN 10 (7.0-18.0) mg/dL Creatinine 0.9 (0.8-1.3) mg/dL Est Cr Clr Drug Dosing 135.19 mL/min Estimated GFR (MDRD) > 60.0 ml/min Glucose 101 (74-106) mg/dL Calcium 8.8 (8.5-10.1) mg/dL Phosphorus 4.6 (2.6-4.7) mg/dL Magnesium 2.3 (1.8-2.4) mg/dL DK Results - Last 24 hrs: Microbiology 02/01/19 06:16 Aerobic Blood Culture - Preliminary Blood - Venous - Lab Draw NO GROWTH AFTER 3 DAYS Anaerobic Blood Culture - Preliminary NO GROWTH AFTER 3 DAYS 02/01/19 06:05 Aerobic Blood Culture - Preliminary Blood - Venous NO GROWTH AFTER 3 DAYS Anaerobic Blood Culture - Preliminary NO GROWTH AFTER 3 DAYS 02/02/19 10:15 Streptococcus pneumoniae Antigen (M - Final Urine Med Orders - Current: Current Medications Albuterol/Ipratropium (Duoneb 3.0-0.5 Mg/3 Ml) 3 ml NEB Q4HRRT PRN PRN Reason: Shortness Of Breath/wheezing Last Admin: 02/03/19 07:21 Dose: 3 ml Docusate Sodium (Colace) 100 mg PO BID PRN PRN Reason: Constipation Enoxaparin Sodium (Lovenox) 40 mg SUBCUT Q24H [facility] Last Admin: 02/04/19 08:15 Dose: 40 mg Levofloxacin/Dextrose 750 mg/ (Premix) 150 mls @ 100 mls/hr IV Q24H [facility] Last Admin: 02/04/19 08:15 Dose: 100 mls/hr Ibuprofen (Motrin) 400 mg PO Q6H PRN PRN Reason: Pain Ondansetron HCl (Zofran Odt) 4 mg PO Q4H PRN PRN Reason: nausea, able to take PO Discontinued Medications Acetaminophen (Tylenol) 650 mg PO Q4H PRN PRN Reason: Pain (Mild 1-3)/fever Albuterol/Ipratropium (Duoneb 3.0-0.5 Mg/3 Ml) 3 ml NEB ONETIME ONE Stop: 02/01/19 02:09 Last Admin: 02/01/19 02:28 Dose: 3 ml Albuterol/Ipratropium (Duoneb 3.0-0.5 Mg/3 Ml) 3 ml NEB ONETIME ONE Stop: 02/01/19 02:18 Last Admin: 02/01/19 03:36 Dose: 3 ml Sodium Chloride (Normal Saline) 1,000 mls @ 125 mls/hr IV STAT [facility] Last Admin: 02/02/19 03:07 Dose: 125 mls/hr Levofloxacin/Dextrose 750 mg/ (Premix) 150 mls @ 100 mls/hr IV ONETIME ONE Stop: 02/01/19 07:09 Last Admin: 02/01/19 05:56 Dose: 100 mls/hr Levofloxacin/Dextrose 500 mg/ (Premix) 100 mls @ 100 mls/hr IV Q24H [facility] Last Admin: 02/01/19 11:00 Dose: 100 mls/hr Sodium Chloride (Normal Saline) 1,000 mls @ 125 mls/hr IV ASDIRECTED [facility] Stop: 02/03/19 02:00 Last Admin: 02/02/19 18:11 Dose: 125 mls/hr Iopamidol (Isovue Multipack-370 (76%)) 100 ml IVPUSH ONETIME STA Stop: 02/01/19 04:17 Last Admin: 02/01/19 04:17 Dose: 100 ml Methylprednisolone Sodium Succinate (Solu-Medrol) 125 mg IVPUSH ONETIME ONE Stop: 02/01/19 02:18 Last Admin: 02/01/19 02:28 Dose: 125 mg Oxycodone HCl (Oxycodone) 5 mg PO Q4H PRN PRN Reason: Pain (moderate 4-6) Simethicone (Simethicone) 80 mg PO ONETIME ONE Stop: 02/02/19 16:58 Last Admin: 02/02/19 17:13 Dose: 80 mg - Exam General: Reports: Alert, Oriented Lungs: Reports: Clear to Auscultation, Normal Respiratory Effort Cardiovascular: Reports: Regular Rate, Regular Rhythm GI/Abdominal Exam: Normal Bowel Sounds, Non-Tender Neurological: Reports: No New Focal Deficit Psy/Mental Status: Reports: Alert, Normal Affect, Normal Mood
== END 2019-02-04 11:11 | disposition home or self-care (01) | DRG 139 ==
LOC: MW.ED 02:03 → MW.MS 05:44 → OBSVTOIN 09:39 → MW.MS 02-03 09:39
PROVIDERS: ADMIT Internal Medicine; ATTEND Internal Medicine
DX: J18.9 Pneumonia, unspecified organism (principal); J45.20 Mild intermittent asthma, uncomplicated; K76.0 Fatty (change of) liver, not elsewhere classified; E66.01 Morbid (severe) obesity due to excess calories; H54.7 Unspecified visual loss; R79.89 Other specified abnormal findings of blood chemistry; Z79.899 Other long term (current) drug therapy; Z68.41 Body mass index [BMI] 40.0-44.9, adult
CPT/HCPCS: 36415; 71045; 71045-26; 71046; 71046-26; 71275; 71275-26; 80048; 80053; 81001; 82550; 83036; 83735; 84100; 84443; 84484; 85025; 85379; 85610; 87040; 87070; 87081; 87205; 87804; 87880-QW; 87899; 93005; 94640; 94667; 96361; 96365; 96366; 96372; 96375; 96376; 99285; 99285-25; A9270-GY; G0378; J1650; J1956; J2930; J7040; J7620-GY; Q9967